=== PATIENT | male | born 1955 | race African-American/Black ===

== ENCOUNTER 2018-11-17 20:04 | Emergency (ER) | payer SELFPAY ==
[~2018-11-17] VITALS: Ht 193 cm; Wt 100.0 kg
[2018-11-17 21:05] LABS: BASOPHILS # (AUTO) 0.03 x10^3/uL (0-0.1); BASOPHILS % (AUTO) 0 % (0-1); EOSINOPHILS # (AUTO) 0.13 x10^3/uL (0-0.4); EOSINOPHILS % (AUTO) 1 % (1-7); LYMPHOCYTES # (AUTO) 1.24 x10^3/uL (1-3.4); LYMPHOCYTES % (AUTO) 11 % (22-44); MD NO; MEAN CORPUSCULAR HEMOGLOBIN 28.6 pg (27.5-34.5); MEAN CORPUSCULAR HGB CONC 33.5 g/dL (33.2-36.2); MEAN CORPUSCULAR VOLUME 85.6 fL (81-97); MEAN PLATELET VOLUME 7.9 fL (7.4-10.4); MONOCYTES # (AUTO) 0.82 x10^3/uL (0.2-0.8); MONOCYTES % (AUTO) 7 % (2-9); NEUTROPHILS % (AUTO) 81 % (42-75); PLATELET COUNT 347 x10^3/uL (130-400); RED BLOOD COUNT 4.27 x10^6/uL (4.38-5.82); RED CELL DISTRIBUTION WIDTH 15.2 % (9.4-14.8)
[2018-11-17 21:18] LABS: ALANINE AMINOTRANSFERASE 51 U/L (12-78); ANION GAP 5 mmol/L (5-15); CALCIUM 8.9 mg/dL (8.5-10.1); CHLORIDE 105 mmol/L (98-107); CREATININE 1.18 mg/dL (0.7-1.3)
[2018-11-17 21:20] LABS: ALKALINE PHOSPHATASE 180 U/L (45-117); BILIRUBIN,TOTAL 0.5 mg/dL (0.2-1.0)
[2018-11-17] MEDS ORDERED: IBUPROFEN 200 MG TABLET ONE (21:36)
--- NOTE | 2018-11-17 21:42 | NUR ---
PT MEDICATED PER MAR. POC DISCUSSED. BED RAILS UP X2. PT AWARE UA IS NEEDED. URINAL GIVEN. PT STATES HE JUST WANT TO THE BATHROOM BUT WILL ATTEMPT WHEN ABLE. PT EDUCATED AIRLINE RESERVATION AGENT LIGHT USE. PT DENIES FURTHER NEEDS AT THIS TIME. CALL LIGHT ON LAP.
[2018-11-17] MEDS ORDERED: IBUPROFEN 200 MG TABLET PO ONE (22:00)
--- NOTE | 2018-11-17 22:39 | NUR ---
PT ATTEMPTING UA AT THIS TIME. POC DISCUSSED. PT DENIES FURTHER NEEDS AT THIS TIME.
--- NOTE | 2018-11-18 00:08 | NUR ---
PT GIVEN CLEAN UNDERPANTS, PANTS, SOCKS AND ABSORBANT PADS. PT AGREEABLE TO TAXI BACK TO DROP IN ASSISTED. AWAITING DC PAPERWORK. PT DENIES FURTHER NEEDS.
[2018-11-18 00:10] VITALS: BP 119/74
== END 2018-11-18 00:35 | disposition home or self-care (01) ==
LOC: ED 11-18 00:29
DX: N45.1 Epididymitis (principal); F17.200 Nicotine dependence, unspecified, uncomplicated; I10 Essential (primary) hypertension
CPT/HCPCS: 36415; 74176; 76870; 80053; 83690; 85025; 99284